=== PATIENT | male | born 1975 | race Caucasian/White ===

== ENCOUNTER 2017-05-25 07:06 | Emergency (ER) | payer OTHER ==
--- NOTE | 2017-05-25 07:20 | ED ---
Upper Extremity Pain - HPI Summary HPI Summary: Mr. Caceres is a 42 yo healthy male presents with 36 hour progressive edema to left index finger. Pt states 3 week ago was horse playing with his child and sustained a wound over left MCP from tooth. Wound was copiously cleansed and healed closed. pt states starting yesterday develop edema in left 2nd PIP joint. States as pain related to edema. No pain "inside" No paresthesia. No erythema. No drainage. No fevers, chills. Not immunocompromised. Pt is RHD. 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 Negative: Redness, Fever, Weakness - Allergies/Home Medications Allergies/Adverse Reactions: Allergies Allergy/AdvReac Type Severity Reaction Status Date / Time Shellfish Allergy Allergy Rash And Verified 05/25/17 07:20 Itching PMH/Surg Hx/FS Hx/Imm Hx Previously Healthy: Yes - Surgical History Surgery Procedure, Year, and Place: none Infectious Disease History: No Infectious Disease History: Denies: Traveled Outside the [place] in Last 30 Days - Family History Known Family History: Positive: Hypertension - Social History Occupation: Employed Full-time Lives: With Family Alcohol Use: Daily Alcohol Amount: 2 drinks nightly Substance Use Type: Reports: Marijuana Substance Use Comment - Amount & Last Used: Weekend use Smoking Status (MU): Light Every Day Tobacco Smoker Amount Used/How Often: 2 cig/nightly Review of Systems Constitutional: Negative Eyes: Negative ENT: Negative Cardiovascular: Negative Respiratory: Negative Gastrointestinal: Negative Genitourinary: Negative Musculoskeletal: Negative Positive: Edema - left 2nd PIP Skin: Negative Neurological: Negative Psychological: Normal All Other Systems Reviewed And Are Negative: Yes Physical Exam Triage Information Reviewed: Yes Vital Signs On Initial Exam: Initial Vitals Temp Pulse Resp BP Pulse Ox 98.4 F 71 16 148/75 97 05/25/17 07:12 05/25/17 07:12 05/25/17 07:12 05/25/17 07:12 05/25/17 07:12 Vital Signs Reviewed: Yes Appearance: Positive: Well-Appearing, No Pain Distress, Well-Nourished Skin: Positive: Warm, Dry, Other - head wound dorsum left MCP 2nd - no edema, warmth, drainage, fluctance Head/Face: Positive: Normal Head/Face Inspection Eyes: Positive: Conjunctiva Clear ENT: Positive: Hearing grossly normal Neck: Positive: Supple Respiratory/Lung Sounds: Negative: Tracheal Deviation, Wheezes, Unable to speak in full sentences Cardiovascular: Positive: Other - 2+ radial 2+ ulnar CBT <2 sec entire digit Musculoskeletal: Positive: Other - + flex/ext wrist + flex/ext MCP, DIP full left index PIP - pt with mild circumferential edema. Pt limited flexion to 90 second to edema 5/5 flex/ext against resistance of PIP No fluctance mild TTP dorsal aspect of joint Neurological: Positive: Normal, Sensory/Motor Intact, Alert, Oriented to Person Place, Time, Other - + gross sensation throughout tip Psychiatric: Positive: Normal AVPU Assessment: Alert - [place] Coma Scale Best Eye Response: 4 - Spontaneous Best Motor Response: 6 - Obeys Commands Best Verbal Response: 5 - Oriented Diagnostics - Vital Signs Vital Signs Temp Pulse Resp BP Pulse Ox 05/25/17 07:12 98.4 F 71 16 148/75 97 - Laboratory Lab Statement: Any lab studies that have been ordered have been reviewed, and results considered in the medical decision making process. - Radiology No standard instances Xray Interpretation: Positive (See Comments) Radiology Interpretation Completed By: Radiologist - no fracture, no foreign body + STS at MCP Re-Evaluation - Re-Evaluation First Eval Comment: No fx noted on my reviewe of xray. Will discharge home and follow-up on xray. pt in agreement with plan. splint. augmentin. hand surgery follow- up Course/Dx - Course Assessment/Plan: Pt with edema to left PIP 2nd index - no direct injury. Pt with remote bite wound to MCP - well healed. Pt with edema. No erythema. No open wounds. ROM minimally limited second edema. Full strength. Will check imaging. Motrin. splint. likely abx - construction. hand f/u. return precautions discussed with pt - Diagnoses Provider Diagnoses: Finger swelling Discharge - Discharge Plan Condition: Stable Disposition: HOME Prescriptions: Amoxicillin/Clavulanate TAB* [Augmentin TAB 875*] 875 mg PO BID #14 tab Patient Education Materials: Swollen Joint (ED) Referrals: Flor Braxton MD [Primary Care Provider] - Helene Vazquez MD [Medical Doctor] - 4 Days (call today to schedule for early next week) Additional Instructions: - wear splint for comfort and support as much as possible - take antibiotics as prescribed until gone. This will likely cause diarrhea. - alternate ibuprofen (advil, motrin) and tylenol every 3hours as needed for pain - If you develop increased pain, red streaking, fevers, increased swelling or other concerns - you should contact your doctor or return with questions or concerns - Contact the hand specialist office today to schedule a follow-up appointment early next week. If you develop increased reddness, red streaking, pain, fever or ANY other concerns - contact the hand surgeon or go directly to the emergency department
[2017-05-25] MEDS ORDERED: Ibuprofen TAB* 600 MG PO ONE (07:46)
[2017-05-25] MEDS ORDERED: Amoxicillin/Clavulanate TAB* 875 MG PO ONE (08:25)
--- NOTE | 2017-05-25 09:14 | RAD ---
Indication: Swelling at the level of the LEFT second finger metacarpal phalangeal joint; laceration 3 weeks ago. Comparison: No relevant prior exams available on the [facility] [place]. Technique: AP, lateral, and oblique views LEFT second finger REPORT AND IMPRESSION: Normal articular alignment. Negative for fracture, periosteal reaction, or osteolysis. Preserved joint spaces. Soft tissue swelling most prominent at the metacarpal phalangeal joint specifically over the dorsal aspect. No conspicuous foreign body or subcutaneous emphysema.
== END 2017-05-25 08:45 | disposition home or self-care (01) ==
LOC: UCEAST 07:06
DX: M25.442 Effusion, left hand (principal); Z91.013 Allergy to seafood; F17.210 Nicotine dependence, cigarettes, uncomplicated
CPT/HCPCS: 73140; 99203; A9270-GY; G0463

== ENCOUNTER 2017-10-10 15:09 | Emergency (ER) | payer OTHER ==
[2017-10-10 15:54] LABS: ABS Basophils 0.1 10^3/ul (0-0.2); ABS Eosinophils 0.1 10^3/ul (0-0.6); ABS Monocytes 1.3 10^3/ul (0-0.8); ABS Neutrophils 13.9 10^3/ul (1.5-7.7); ABS Nucleated RBC 0 10^3/ul; Eosinophil % 0.8 % (0-6); Hematocrit 44 % (42-52); Lymphocyte % 11.3 % (25-47); Mean Corpuscular HGB Conc 34 g/dl (31-36); Mean Corpuscular Hemoglobin 32 pg (27-31); Mean Corpuscular Volume 93 fL (80-94); Mean Platelet Volume 8 um3 (7.4-10.4); Nucleated Red Blood Cells % 0; Platelet Count 250 10^3/ul (150-450); Red Blood Count 4.76 10^6/ul (4.0-5.4); Red Cell Distribution Width 13 % (10.5-15); White Blood Count 17.4 10^3/ul (3.5-10.8)
[2017-10-10 16:01] LABS: INR 0.86 (0.77-1.02)
[2017-10-10 16:15] LABS: EGFR Non-African American 82.1 (>60)
--- NOTE | 2017-10-10 16:48 | RAD ---
INDICATION: 42 follow-up bladder. Request for CT of the chest, abdomen, pelvis, cervical spine, thoracic spine, lumbar spine COMPARISON: None TECHNIQUE: Axial source images were obtained from the thoracic inlet to the symphysis pubis. There is limited evaluation of both the bowel and the solid viscera because neither oral intravenous contrast was given per ED request. CHEST FINDINGS: Neck/thyroid: The visualized neck to include the thyroid appear normal. Chest wall: There are no acute abnormalities of the bony thorax or chest wall. There is no gross supraclavicular, infraclavicular, or axillary lymphadenopathy. Lungs : There are no pulmonary parenchymal masses or infiltrates. There is no pulmonary contusion. There is no pneumothorax The pulmonary interstitium appears normal. There are no endobronchial lesions. Cardiomediastinal structures: The heart is normal in size. There is no pericardial effusion. There is no evidence of aortic aneurysm or dissection. The pulmonary vessels appear normal. There is no gross mediastinal or hilar adenopathy. The esophagus appears normal. Pleura : There are no pleural-based masses or effusions. ABDOMINAL/PELVIC FINDINGS: Liver: There is no CT abnormality of the liver on noncontrast evaluation. Gallbladder: There are no calcified gallstones. There is no evidence of wall thickening or pericholecystic fluid. Spleen: The noncontrast CT appearance of the spleen is unremarkable. Pancreas: The noncontrast CT appearance the pancreas is unremarkable. There is limited evaluation. Adrenal glands: There is no evidence of adrenal mass. Kidneys: Noncontrast imaging of the kidneys demonstrates no hydronephrosis, calculi, or mass. Adenopathy: There is no gross adenopathy. Fluid collections: There are no free or localized fluid collections. Vessels: Noncontrast imaging shows no specific abnormalities GI tract: No oral contrast was given. No specific abnormality is seen. There is no obstruction or free air to suggest a perforated hollow viscus. Pelvic organs: The prostate and seminal vesicles are normal Bladder: The noncontrast CT appearance of the bladder is unremarkable. Abdominal and pelvic soft tissues: There is mild asymmetry of the obturator musculature on the left likely related to the left-sided pelvic fractures. Osseous structures: There are fractures of the left hemipelvis with a minimally displaced fracture through the inferior pubic ramus on the left and a fracture through the superior pubic ramus, anterior left acetabulum. There are no other fractures. There is degenerative disc disease at the lower 3 lumbar levels with vacuum disc phenomena at L3-L4 and L5-S1. IMPRESSION: NONCONTRAST IMAGING SHOWS NO ACUTE CT ABNORMALITIES OF THE CHEST, SOLID VISCERA, OR FREE FLUID. THERE ARE FRACTURES LEFT HEMIPELVIS DESCRIBED
--- NOTE | 2017-10-10 16:50 | RAD ---
INDICATION: Fall. Possible back injury COMPARISON: CT chest/abdomen/pelvis same date TECHNIQUE: Noncontrast axial source images was performed from the thoracolumbar junction to the sacrum. Coronal and and sagittal reformatted images were generated. FINDINGS: Vertebrae: There is no prevertebral fracture or acute focal bony lesion. There is endplate sclerosis involving the lower 3 lumbar vertebrae with infection disc phenomena at L3-L4 and L5-S1 with moderate narrowing about L5-S1. There is multilevel facet arthropathy at the lower 3 lumbar levels. Alignment: The lumbar vertebrae are normally aligned. Central Canal: There are no significant CT abnormalities of the central canal or foramina. MR imaging is a more sensitive method to evaluate the canal and foramina. Intervertebral disc spaces: The disc spaces are maintained. Soft tissues: The paravertebral soft tissues are normal. Other: None IMPRESSION: DEGENERATIVE DISC DISEASE LOWER LUMBAR SPINE. NO ACUTE FINDINGS
--- NOTE | 2017-10-10 16:51 | RAD ---
INDICATION: Fall. Possible back injury COMPARISON: CT chest/abdomen/pelvis same date TECHNIQUE: Noncontrast axial source images was performed from the thoracic inlet to the level the hemidiaphragms. Coronal and and sagittal reformatted images were generated. FINDINGS: Vertebrae: There is no fracture or acute focal bony lesion. There are minor endplate irregularities of the lower thoracic spine from T9 to T12 consistent with degenerative change Alignment: The thoracic vertebrae are normally aligned. Central Canal: There are no significant CT abnormalities of the central canal or foramina. MR imaging is a more sensitive method to evaluate the canal and foramina. Intervertebral disc spaces: The disc spaces are maintained. Soft tissues: There are no paravertebral soft tissue abnormalities. IMPRESSION: MINOR DEGENERATIVE CHANGES LOWER THORACIC SPINE, OTHERWISE NEGATIVE
--- NOTE | 2017-10-10 16:54 | RAD ---
INDICATION: Fall. Neck pain. COMPARISON: None TECHNIQUE: Noncontrast axial source images was performed from the skull base to the thoracic inlet. Coronal and and sagittal reformatted images were generated. FINDINGS: Vertebrae: There is no fracture or acute focal bony lesion. There are degenerative changes with endplate sclerosis and mild degenerative disease at C3-C4 and C4-C5. There is moderate degenerative disc disease at C5-C6. There is facet arthropathy at C2-C3 on the left Alignment: The craniocervical junction appears normal. There is mild cervical spine straightening. Central Canal: There are no significant CT abnormalities of the central canal or foramina. MR imaging is a more sensitive method to evaluate the canal and foramina. Intervertebral disc spaces: The remaining disc spaces are maintained. Brain: The visualized brain appears unremarkable. Soft tissues: The visualized soft tissue elements of the neck are unremarkable. The prevertebral soft tissues appear normal. The lung apices are clear. IMPRESSION: Midcervical degenerative disease predominantly at C5-C6 with cervical spine straightening, otherwise negative.
[2017-10-10] MEDS ORDERED: Morphine INJ* 4 MG/ML 1 ML CARPUJECT IV ONE (17:07)
[2017-10-10] MEDS ORDERED: Ondansetron INJ* 2 MG/ML VIAL IV ONE (17:07)
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
[2017-10-10 18:02] VITALS: BP 157/83
== END 2017-10-10 19:09 | disposition home or self-care (01) ==
LOC: ED 15:09
DX: S32.9XXA Fracture of unspecified parts of lumbosacral spine and pelvis, initial encounter for closed fracture (principal); W11.XXXA Fall on and from ladder, initial encounter; Y92.9 Unspecified place or not applicable; F17.210 Nicotine dependence, cigarettes, uncomplicated
CPT/HCPCS: 36415; 71250; 72125; 72128; 72131; 74176; 80053; 85025; 85610; 99283; J2270; J2405